=== PATIENT | female | born 1965 | race Caucasian/White ===

== ENCOUNTER 2016-10-28 19:58 | Emergency (ER) | payer BC ==
--- NOTE | 2016-10-28 20:13 | PDOC ---
History of Present Illness - General Chief Complaint: Injury Stated Complaint: FACIAL PAIN/HEADACHE Time Seen by Provider: 10/28/16 20:01 History Source: Patient Exam Limitations: No Limitations - History of Present Illness Initial Comments: 10/28/16 20:09 51 Y F NO PMHX SLIPPED AND FELL 30 MIN AGO LANDED ON LT SIDE. NO LOC. C/O PAIN ON HER LT CHEEK. NO OTHER COMPLAINTS. BITE FEELS NORMAL. NO PAREESTHESIAS. NO CP , DIZZINESS, PALPITIATRINS, HEAD ACHES; PRE, BRANDEE, OR POST FALL Past History - Past Medical History Allergies/Adverse Reactions: Allergies Allergy/AdvReac Type Severity Reaction Status Date / Time No Known Allergies Allergy Unverified 10/28/16 20:00 Home Medications: Ambulatory Orders NK [No Known Home Medication] 10/28/16 Other medical history: DENIES - Psycho/Social/Smoking Cessation Hx Anxiety: No Suicidal Ideation: No Smoking History: Never smoked Review of Systems - Review of Systems Able to Perform ROS?: Yes Is the patient limited Greek proficient: No Constitutional: No: Symptoms Reported HEENTM: Yes: Symptoms Reported, See HPI Respiratory: No: Symptoms reported Cardiac (ROS): No: Symptoms Reported Musculoskeletal: No: Symptoms Reported Neurological: No: Symptoms reported *Physical Exam - Vital Signs Last Vital Signs Temp Pulse Resp BP Pulse Ox 99 F 80 16 117/75 99 10/28/16 20:01 10/28/16 20:01 10/28/16 20:01 10/28/16 20:01 10/28/16 20:01 - Physical Exam General Appearance: Yes: Nourished, Appropriately Dressed. No: Apparent Distress HEENT: positive: EOMI, ALF, Normal ENT Inspection, Other (NORMAL BITE, NO BONY TENDERNESS). negative: Sinus Tenderness, Orbits, Lesions Neck: positive: Supple. negative: Tender Respiratory/Chest: positive: Lungs Clear, Normal Breath Sounds. negative: Chest Tender, Respiratory Distress Cardiovascular: positive: Regular Rhythm, Regular Rate Gastrointestinal/Abdominal: positive: Normal Bowel Sounds, Soft. negative: Tender Musculoskeletal: positive: Normal Inspection. negative: Vertebral Tenderness Extremity: positive: Normal Capillary Refill, Normal Inspection, Normal Range of Motion, Pelvis Stable. negative: Tender Integumentary: positive: Normal Color, Ecchymosis (LT FACE. 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, Fully Oriented, Alert, Normal Mood/ Affect, Normal Response, Motor Strength 5/5 *DC/Admit/Observation/Transfer Diagnosis at time of Disposition: Facial injury Qualifiers: Encounter type: initial encounter Qualified Code(s): S09.93XA - Unspecified injury of face, initial encounter - Discharge Dispostion Disposition: HOME Condition at time of disposition: Good - Patient Instructions Printed Discharge Instructions: DI for Closed Head Injury Additional Instructions: IBUPROFENN 600 MG 3 TIMES A DAY FOR 3 DAYS ICE TO AREA ON AND OFF FOR THE REST OF THE DAYS TODAY SEE YOUR DOCTOR EARLY NEXT WEEK RETURN IF NEW SYMPTOMS
[2016-10-28 20:22] VITALS: BP 117/75; PULSE 80; TEMP 99; BMI 28.1
== END 2016-10-28 20:27 | disposition home or self-care (01) ==
LOC: FER 19:58
DX: S09.93XA Unspecified injury of face, initial encounter (principal); W18.30XA Fall on same level, unspecified, initial encounter; Y93.9 Activity, unspecified; Y92.9 Unspecified place or not applicable
CPT/HCPCS: 99282-25